=== PATIENT | male | born 1980 | race Caucasian/White ===

== ENCOUNTER 2025-01-23 08:19 | Day surgery (SDC) | payer OTHER ==
--- NOTE | 2025-01-16 10:43 | ELECTROCARDIOGRAPH REPORT ---
[facility] Test Date: 2025-01-16 Test Time: 10:40:08 Pat Name: NIYA RAMIREZ Department: [facility] Patient ID: [id number] Room: Gender: M Brim Stretcher: PATRICIA : 1980 Requested By: TAMEKA PATEL Order Number: [id number] Reading MD: Dr. ALAN Mendes Measurements Intervals [place] Rate: 59 P: 61 RI: 147 QRS: 78 QRSD: 97 T: 53 QT: 409 QTc: 406 Interpretive Statements Sinus bradycardia ST elev, probable normal early repol pattern Electronically Signed On 01-16-2025 17:45:[address] ALAN Mendes Please click the below link to view image of tracing.
[2025-01-16 10:49] LABS: PRE OP INR 1.1 INR
[2025-01-16 10:51] LABS: ALBUMIN/GLOBULIN RATIO 1.5 (1.1-1.5); ALKALINE PHOSPHATASE 67 IU/L (46-116); BLOOD UREA NITROGEN 16 MG/DL (7-18); BUN/CREATININE RATIO 14.7 (10.0-20.0); CALCIUM 8.7 MG/DL (8.5-10.1); CHLORIDE 105 MMOL/L (99-107); CREATININE 1.09 MG/DL (0.60-1.10); PRE OP ALT 25 U/L (30-65); PRE OP ANION GAP 6 (8-16); PRE OP AST 22 U/L (10-37); PRE OP BILIRUB, TOTAL 0.7 MG/DL (0.0-1.0); PRE OP GLUCOSE 101 MG/DL (70-104); PRE OP POTASSIUM 3.8 MMOL/L (3.4-5.1); PRE OP SODIUM 143 MMOL/L (135-145); TOTAL CARBON DIOXIDE 31.8 MMOL/L (24-32); TOTAL PROTEIN 6.7 G/DL (6.4-8.2); eGFR 73 ML/MIN
[2025-01-16 10:59] LABS: BASOPHILS % (AUTO) 0.4 % (0-1); EOSINOPHILS # (AUTO) 0.1 X10'3 (0-0.9); EOSINOPHILS % (AUTO) 2.2 % (0-6); LYMPHOCYTES # (AUTO) 1.5 X10'3 (1.1-4.8); LYMPHOCYTES % (AUTO) 28.2 % (21-51); MEAN CORPUSCULAR HGB CONC 35.4 g/dL (33.0-36.5); MEAN CORPUSCULAR VOLUME 87.6 FL (78-98); MEAN PLATELET VOLUME 7.6 FL (7.4-10.4); MONOCYTES # (AUTO) 0.5 X10'3 (0-0.9); MONOCYTES % (AUTO) 9.5 % (2-12); NEUTROPHILS # (AUTO) 3.1 X10'3 (1.8-7.7); NEUTROPHILS % (AUTO) 59.7 % (42-75); PRE OP HEMOGLOBIN 16.6 g/dL (14.0-17.9); PRE OP PLATELET COUNT 209 X10'3 (140-440); PRE OP WHITE BLOOD COUNT 5.2 10'3 (4.8-10.8); RED BLOOD COUNT 5.36 X10'6 (4.70-6.10); RED CELL DISTRIBUTION WIDTH 12.5 % (11.5-14.5)
[~2025-01-23] VITALS: Ht 175.3 cm; Wt 74.7 kg
[2025-01-23] VITALS (8 sets, daily range): BP systolic 103–125; BP diastolic 56–77; PULSE 57–64; RESP 15–18; TEMP 97.5; O2SAT 94–99
[~2025-01-23 08:19] MED LIST: BACL10TA2 PO; MELO-102 PO; ceFAZolin 2gm in dextrose, iso 50 ML IV ONE
[2025-01-23] MEDS ORDERED: meperidine/PF 25mg/ml syringe IV PRN ×3 (08:30)
[2025-01-23] MEDS ORDERED: proCHLORperazine 10 MG/2 ml inj IV PRN (08:30)
[2025-01-23] MEDS ORDERED: ringers solution, lacted 1,000 ML IV SCH (08:30)
[2025-01-23] MEDS ORDERED: enalaprilat 1.25mg/ml 2ml vial IV PRN (08:30)
[2025-01-23] MEDS ORDERED: morphine 2 MG/ML inj. syringe IV PRN (08:30)
[2025-01-23] MEDS ORDERED: morphine 4 MG/ML inj SYRINge IV PRN (08:30)
[2025-01-23] MEDS ORDERED: ondansetron/PF 4mg/2ml inj IV PRN (08:30)
[2025-01-23] MEDS ORDERED: labetalol 20mg/4ml (5mg/ml) syringe IV PRN (08:30)
[2025-01-23] MEDS: famotidine 20mg tablet PO ONE (09:26)
[2025-01-23] MEDS: ringers solution, lacted 1,000 ML IV SCH (09:27)
[2025-01-23] MEDS ORDERED: bacitracin 15gm ointment TP ONE (09:34)
[2025-01-23] MEDS ORDERED: BUPIVAcaine 2.5mg/ml inj 50ml vial (contains preservative) ONE (09:34)
[2025-01-23] MEDS ORDERED: propofol inj 20 ML IV ONE (11:59)
[2025-01-23] MEDS ORDERED: LIDOcaine 2% (20mg/ml) 5ml vial ONE (11:59)
[2025-01-23] MEDS ORDERED: midazolam 1 mg/ML 2ml injection ONE (11:59)
[2025-01-23] MEDS ORDERED: fentaNYL/PF 50MCG/1 ML 2ML syringe ONE (11:59)
[2025-01-23] MEDS ORDERED: sevoflurane 250ml liquid IH ONE (12:00)
[2025-01-23] MEDS ORDERED: BUPIVAcaine/PF 7.5mg/ml (0.75%) 10ml vial ONE (12:02)
--- NOTE | 2025-01-23 12:56 | ANESTHESIA RECORDS ---
Nerve Block Providers to [facility] Diagnosis: Nerve Block requested by: TAMEKA PATEL DPM Neuraxial/Peripheral Nerve Block requested for Post-operative analgesia by Physician above DIAGNOSIS: Post-operative pain. (Body Area) Shoulder: [ ] Arm: [ ] Hand: [ ] Hip: [ ] Knee: [ ] Ankle: [ ] Foot: [ Right ] Leg: [ ] Abdomen: [ ] Other: [ ] Post-operative pain expected to be/is inadequately managed by oral or IV medicines. Regional anesthetic expected to facilitate rehabilitation and/or discharge from facility. Other:[ ] Procedure Performed: Ankle Posterior tibial: Right Ankle Superficial Peroneal: Right Ankle Deep Peroneal: Right Time out Done?: Yes Time of Time out: 12:15 Procedure Details: PROCEDURE DETAILS: Risks, benefits and alternatives explained Informed consent obtained, and patient wishes to proceed Conscious sedation with indicated monitors Patient positioned, pertinent anatomy defined, sterile technique used Needle used: [ ] 3 1/8 inch Stimuplex Ultra 22ga [ ] 4 inch Stimuplex Ultra 20ga [ ] 6 inch Stimuplex Ultra 20ga [ ] 6 inch, Quikbloc over the needle catheter set 20ga [ ] 4 inch Quikbloc over the needle catheter set 20ga [x ]Other: [_#25 1 /2 needle ] Loss of twitch @ [ ]mA [x ] Single Injection [ ] Catheter Ultrasound Guidance Used: [ ] Yes [x] No Attempts:[ once ] Medicines injected: [ ]Clonidine Amt:[ ] [x ]Dexamethasone Amt:[ 2 mgs ] [ ]Ropivacaine Amt:[ ] [x ]Bupivacaine Amt:[ 0.5% 15 cc ] [ ]Lidocaine Amt:[ ] [ ]Exparel 1.33%:[ ] [ ]Epinephrine Amt[ ] [ ]Other: [ ] Intermittent aspiration during local anesthetic administration No symptoms of intraneural or intravenous injection Patient tolerated procedure well Comments Right Ankle Block: Pts ankle and foot prepped with Betadine, Local anesthetic mixture is injected in divided doses to block the 1) post Tibial never behind Medial malleolus, 2) Superfical saphenous nerves in front of ankle are blocked by circumferential subcutaneous injection of 1015 mL of local anesthetic along with a line just proximal to the malleoli and anterior from the Achilles tendon medially to laterally , 4) Deep peroneal nerve was blocked with 5 cc of local anesthetic mixture deep to extensor retinaculum just lateral to the extensor hallucis longus tendon. JULIETA GOETZ MD January 23, 2025 12:55
[2025-01-23] MEDS ORDERED: mupirocin 2% ointment 22GM ONE (13:11)
[2025-01-23] MEDS ORDERED: ondansetron/PF 4mg/2ml inj ONE (13:33)
--- NOTE | 2025-01-23 14:12 | OPERATIVE REPORT ---
DATE OF SURGERY: 01/23/2025 DICTATING PHYSICIAN: Jacky Garcia DPM PREOPERATIVE DIAGNOSIS: Painful hallux rigidus deformity of the first metatarsophalangeal joint, right. POSTOPERATIVE DIAGNOSIS: Painful hallux rigidus deformity of the first metatarsophalangeal joint, right. PROCEDURE: Fusion of the first metatarsophalangeal joint, right foot. ANESTHESIA: General. The patient was also given an ankle block by anesthesia before surgery. The patient was given 2 g of cefazolin IV 30 minutes prior to skin incision. COMPLICATIONS: None. ESTIMATED BLOOD LOSS: Less than 5 mL. INDICATIONS FOR SURGERY: Progressively worsening pain, disability of the hallux rigidus deformity, right foot, which has not been responsive to conservative measures consisting of different types of shoe wear and nonsteroidal anti-inflammatory medications. C-arm was used during the case as well. DESCRIPTION OF PROCEDURE: The patient was escorted to the operating room suite where he was prepared and draped in the usual sterile technique. A linear incision was made over the first metatarsophalangeal joint just medial to the extensor hallucis longus tendon. This was a full-thickness incision and an arthrotomy was performed at the level of the first metatarsophalangeal joint. Visual inspection was performed of the first metatarsophalangeal joint and about 40% of the articular cartilage at the base of the proximal phalanx of the hallux was noted to be gone with subchondral bone visible. Utilizing a microsagittal saw, flat cuts were made at the articular surface of the first metatarsophalangeal joint. The toe was provisionally fixated with a 0.062 K-wire. C-arm was used to confirm appropriate alignment. Utilizing a plate under the foot to simulate weight bearing, the toe was noted to be well aligned with about 10 degrees of dorsiflexion and parallel to the second toe in the transverse plane. Final fixation was accomplished with the use of 2 bone margot, one 18 mm and the other one was 15 mm. There were no complications during the surgery. IrriSept was used for irrigation along with normal saline. The tissues were closed in layers. Capillary refill time was noted to be instantaneous upon release of the tourniquet. The tourniquet was inflated to 250 mmHg at the beginning of the case. The patient was then escorted to PACU after the appropriate postoperative dressings were applied. Jacky Garcia DPM TID: [id number] RECEIPT: [id number] [facility]OS[employer]AN
== END 2025-01-23 14:44 | disposition home or self-care (01) ==
LOC: PAS 08:19
PROVIDERS: ATTEND Podiatrist Foot & Ankle Surgery
DX: M20.21 Hallux rigidus, right foot (principal); Z79.899 Other long term (current) drug therapy; Z79.01 Long term (current) use of anticoagulants; Z98.890 Other specified postprocedural states; Z88.0 Allergy status to penicillin; Z88.8 Allergy status to other drugs, medicaments and biological substances; G89.18 Other acute postprocedural pain
CPT/HCPCS: 28289; 36415; 64450; 73620; 76942; 80053; 82948; 85025; 85610; 85730; 93005; A6222; C1713; J0131; J2003; J2250; J2405; J2704; J2710; J3010; J3490; J7030; J7120; L3260; Z7506; Z7508; Z7512; 76000; A4215; A4618; A6253; A6446; A6449; A6455; A7000